=== PATIENT | male | born 1995 | race Caucasian/White ===

== ENCOUNTER → 2017-01-02 | Outpatient (CLI) | payer OTHER ==
--- NOTE | 2017-01-03 06:49 | PAP/PSG TECHNICIAN REPORT ---
[facility] Home Lending Officer Polysomnogram Report Study name: None Report date: 01/03/2017 Study date: 01/02/2017 Referring Physician: Todd Carrillo Name: RENETTA KOVACS Interpreting Physician: John Paul Mendiola M.D. Date of : 1995 Home Lending Officer: Mariaelena Hoyt, PSGT. Sex: Male Age: 21 StudyType: PSG Weight: 193 lbs Height: 21 years, Height 5' 11" Neck Circum:16 inches BMI: 26.92 Medications: NONE Patient History 21 YR. OLD MALE PRESENTS TO THE SLEEP LAB FOR A DIAGNOSTIC SLEEP STUDY. PATIENT STATES THAT HE SNORES AND WAKES COUGHING. HE ALSO COMPLAINS OF DAYTIME SOMULENCE.ESS= 9, NECK = 16 INCHES. Parameters Monitored NPSG: E1-M2, E2-M1, Fp1-M2, Fp2-M1, F3-M2, F4-M2, F4-M1, C3-M2, C4-M2, C4-M1, O1-M2, O2-M2, O2-M1, T3-M2, T4-M1, P3-M2, P4-M1, CHIN1, CHIN2, HR, EKG, Legs, PFLOW, SNOR, FLOW, CFLOW, Tidal Volume, THOR, ABDO, SpO2, PLTH, CPRESS, ETCO2 Wave, ETCO2, pH Sleep Architecture Sleep Stages Time at Lights Off 11:05:37 PM STAGES Time (min.) TST (%) Time at Lights On 5:39:07 AM Wake 90.0 -- Total Recording Time (TRT) 394.50 min. N1 24.5 8 Total Sleep Period (TSP) 356.5 min. N2 187.0 62 Total Sleep Time (TST) 303.5min. N3 58.5 19 Awake Time 90.0 min. REM 33.5 11 Wake after Sleep Onset 53.0 min. Sleep Efficiency (SE) 77 % Sleep Onset Latency (CORETTA) 37.0 min. Number of Stage 1 Shifts None Awakenings 13 Stage Changes 63 Number of REM periods 3 REM 33.5 11 REM Latency 86.0 min. NREM 270.0 89 Body Position Analysis Supine Right Left Side Prone Vertical Total Sleep Time (min.) 14.1 155.3 137.6 292.86 0.0 0.0 Total Sleep Time (%) 4% 51% 45% 96 0% N/A% Total Sleep Time REM (min.) 0.0 17.0 16.5 None 0.0 0.0 Total Sleep Time NREM (min.) 10.6 138.3 121.1 None 0.0 0.0 Intermittent Wake (min.) 3.5 27.4 59.1 None 0.0 0.0 Total Sleep Period (%) 4% None None None None None Arousals Myoclonus (PLM) * Events Count Index Events Count Index Spontaneous 46 9 Events Awake (PLMW) 3 2.0 Respiratory 4 0.8 Events Asleep w/ Arousal (PLMA) 5 1.0 PLM 5 1 Events Asleep w/o Arousal (PLMS) 109 21.5 Snoring 3 1 Total Asleep 114 22.5 Total 58 11 Total 117 18 Respiratory Analysis * CA OA MA CH H RERA Total Count 1 1 0 0 6 4 8 Index 0.2 0.2 0.0 0 1.2 1 2.4 Mean Duration 24.3 14.6 0.0 0.00 25.3 12.2 19.9 Longest Duration 24.3 14.6 0.0 0.00 0.0 18.1 48.1 Respiratory Event Summary Total Supine ~Supine Right Left Prone REM NREM Apneas Count 2 1 1 0 1 N/A 0 2 Index 0.4 6 0 0.0 0.4 N/A 0 0 Hypopneas (4% Desat) Count 6 4 2 1 1 N/A 0 6 Index 1.2 22.5 0 0.4 0.4 N/A 0.0 1.3 Apneas & All Hypopneas Count 8 5 3 1 2 N/A 0 8 Index 1.6 28 1 0 1 N/A 0.0 1.8 Respiratory Events (Plate Maker+All Hyp+RERA) Count 8 5 7 4 3 N/A 0 8 Index 2.4 28 1 1.5 1.3 N/A 0.0 2.7 Respiratory Related Arousal Count 4 5 2 1 1 N/A 0 4 Index 0.8 11 0 0 0 N/A 0 1 Snoring Analysis Supine Right Left Prone REM NREM Total Snore duration 4.6 min Snores count 15 35 127 N/A 21 156 177 Snore mean duration 1.6 Sec Snores index 85 14 55 N/A 37.6 34.7 35.0 TST with snoring (%) 1.5% Desaturation Event Summary: Minimum %SpO2 Event Count Mean/Min/Max Duration(sec.) Desaturation Index % Time In Bed > 90 10 28.9 / 17.3 / 54.8 1.5 99.8 86 - 90 1 17.3 / 17.3 / 17.3 67.6 0.2 81 - 85 0 N/A 0.0 0.0 76 - 80 0 N/A 0.0 0.0 71 - 75 0 N/A 0.0 0.0 66 - 70 0 N/A 0.0 0.0 61 - 65 0 N/A 0.0 0.0 56 - 60 0 N/A 0.0 0.0 51 - 55 0 N/A 0.0 0.0 < 50 0 N/A 0.0 0.0 Total REM NREM Awake <50% 0.0 min. 0.0 min. 0.0 min. 0.0 min. 51 - 60% 0.0 min. 0.0 min. 0.0 min. 0.0 min. 61 - 70% 0.0 min. 0.0 min. 0.0 min. 0.0 min. 71 - 80% 0.0 min. 0.0 min. 0.0 min. 0.0 min. 81 - 90% 0.9 min. 0.0 min. 0.9 min. 0.0 min. 91 - 100% 392.5 min. 33.5 min. 269.1 min. 89.9 min. Average 95 95 94 95 Minimum SpO2 90 92 90 92 Desaturation Event Index 1.5 0.0 2.2 0.0 # Desat. Events below 89% N/A N/A N/A N/A Time(%) with Saturation below 89% 0.0 0.0 0.0 0.0 Time(min.) with Saturation below 89% 0.0 0.0 0.0 0.0 Time (mins) REM (mins) NREM (mins) % of TST SpO2 Below 90% 3 N/A N3 0.0 SpO2 Below 88% 0 0 0 0 Heart Rate Analysis Min (bpm) Max (bpm) Average (bpm) Awake 57 109 80 NREM 54 110 69 REM 58 101 74 Overall 54 110 70 Supplemental O2 Values Minimum O2 level: None Value Start Time End Time Home Lending Officer Comments PSG Study slept in the right, left, and supine positions. No cardiac arrhythmia or PLM's noted. No bruxism noted. Snoring was noted and scored as a 2 on a scale of 1 through 5. (0=no snoring, 5=snoring loud enough to be heard through a closed door or down the [address] way) Mr. Kovacs awoke to use the restroom zero times during the night. Mr. Kovacs stated, I did not sleep as well as I do when I am in my own bed. The final report will be interpreted and signed by a sleep physician. The completed physician report will then be placed in the patient medical record. Patient coughed a lot before falling asleep. Mild intermittent snoring was displayed. Patient tossed from side to side often during the test, he did state that it wasn't a normal night's sleep for him. Very little supine sleep obtained. Therapy (cm H2O) 0 TIB (min.) 393.5 TST (min.) 303.5 Sleep Onset (min.) 37.0 REM Onset From Sleep (min.) 86.0 Sleep Efficiency % 77 Wakefulness (%) 23 Wakefulness (min.) 90.0 NREM 1 (%) 8 NREM 1 (min.) 24.5 NREM 2 (%) 62 NREM 2 (min.) 187.0 NREM 3 (%) 19 NREM 3 (min.) 58.5 REM (%) 11 REM (min.) 33.5 # Arousals 58 Arousal Index 11 # Snore 177 Snore Index 35.0 AHI 1.6 AHI Supine 28 AHI Non-Supine 1 NREM AHI 1.8 REM AHI 0.0 RDI 2.4 # Obstructive Apnea 1 # Central Apnea 1 # Mixed Apnea 0 # Hypopneas 6 RERAs 4 Total Respiratory Events 12 Time Below SpO2 89% (min.) 0.0 Mean NREM SpO2 (%) 94 Mean REM SpO2 (%) 95 Mean Sleep SpO2 (%) 94 Min NREM SpO2 (%) 90 Min REM SpO2 (%) 92 Position Supine (min.) 14.1 Position Non-supine (min.) 292.9 LM Index Sleep 22.5 LM Index NREM 22.0 LM Index REM 26.9 Mean Heart Rate (bpm) 70 Min Heart Rate (bpm) 54
--- NOTE | 2017-01-05 16:13 | POLYSOMNOGRAPH REPORT ---
CLINICAL DATA: A 21-year-old male with BMI of [address] Carrillo with snoring and awakening with coughing. He also has daytime somnolence. His [place] sleepiness score was 9/24. The patient was referred by Dr. Todd Carrillo. SLEEP ARCHITECTURE: Total sleep period was 356.5 minutes. Total sleep time was 303.5 minutes divided between 270 minutes of non-REM sleep and 33.5 minutes of REM sleep. Sleep onset latency was delayed at 37 minutes. REM latency was 86 minutes. Sleep efficiency was 77%. Wake after sleep onset was 53 minutes. Sleep consisted of stage N1 8%, stage N2 62%, stage N3 19%, and REM of 11%. AROUSAL DATA: 58 arousals were recorded for an index of 11 per hour. 46 were spontaneous. PLM DATA: Mildly elevated limb movements during sleep were noted. There were 114 limb movements during sleep noted for an index of 22.5 per hour with an arousal index of 1 per hour. RESPIRATORY DATA: There was no evidence of clinically significant sleep apnea seen. The AHI was 0.6. The RDI was 2.4. There was 1 central and 1 obstructive apneic episodes. The longest duration of apnea was 24.3 seconds. There were 6 hypopneic episodes with a mean duration of 25.3 seconds. There were 4 RERAs with the longest RERA being 18.1 seconds. OXIMETRY DATA: No hypoxemia was seen. Oxygen vidya was 90%. Mean saturation was 95%. EKG: Heart rates ranged from 54-110 beats per minute. No arrhythmias were noted. [employer] ATTENDANT'S COMMENTS: The patient slept in the right, left, and supine positions. Snoring was mild, rated 2 on a scale of 1-5. The patient did cough before falling asleep. He tossed from side to side often during the test. IMPRESSION: No evidence of clinically significant sleep apnea/hypopnea with an AHI of 1.6 and an RDI of 2.4. No evidence of nocturnal hypoxemia or significantly abnormal limb movements during sleep. RECOMMENDATIONS: The patient should continue to practice good sleep hygiene. [facility]
== END | disposition home or self-care (01) ==
LOC: C.NEUR 21:00
PROVIDERS: ATTEND General Practice
DX: R06.83 Snoring (principal)